=== PATIENT | female | born 1935 | race Caucasian/White ===

== ENCOUNTER 2018-02-24 15:42 | Inpatient (IN) | payer MEDICARE, OTHER ==
[~2018-02-24] VITALS: Ht 162.6 cm; Wt 46.2 kg
[~2018-02-24 15:42] MED LIST: ASPI-1265 PO; ATOR20TA66 PO; CLOP75TA35 PO; FAMO20TA8 PO; GLIP5TAB13 PO; MECL12.584 PO; SITA1TAB6 PO
[2018-02-24] MEDS ORDERED: TETanus/Pertussis (Acell)/Diphther VAC/PF (Tdap-Adult) 0.5ml syringe IMVAC ONE (16:10)
[2018-02-24] MEDS ORDERED: normal saline 1000ml 1,000 ML IV ONE (16:10)
[2018-02-24 17:00] LABS: BASOPHILS # (AUTO) 0.1 X10'3 (0-0.2); BASOPHILS % (AUTO) 0.6 % (0-1); EOSINOPHILS # (AUTO) 0.1 X10'3 (0-0.9); EOSINOPHILS % (AUTO) 0.6 % (0-6); HEMATOCRIT 39.3 % (35.0-45.0); HEMOGLOBIN 13.2 g/dl (12.0-16.0); LYMPHOCYTES # (AUTO) 1.8 X10'3 (1.1-4.8); LYMPHOCYTES % (AUTO) 18.3 % (21-51); MEAN CORPUSCULAR HEMOGLOBIN 29.6 PG (27.0-31.0); MEAN CORPUSCULAR HGB CONC 33.6 % (33.0-36.5); MEAN PLATELET VOLUME 12.3 FL (7.4-10.4); MONOCYTES # (AUTO) 0.7 X10'3 (0-0.9); MONOCYTES % (AUTO) 7.3 % (2-12); NEUTROPHILS # (AUTO) 7.1 X10'3 (1.8-7.7); NEUTROPHILS % (AUTO) 73.2 % (42-75); PLATELET COUNT 239 X10'3 (140-440); RED BLOOD COUNT 4.46 X10'6 (4.20-5.60); RED CELL DISTRIBUTION WIDTH 13.2 % (11.5-14.5); WHITE BLOOD COUNT 9.7 X10'3 (4.5-11.0)
[2018-02-24 17:16] LABS: ALANINE AMINOTRANSFERASE 18 U/L (12-78); ALBUMIN 3.5 G/DL (3.4-5.0); ALBUMIN/GLOBULIN RATIO 0.7 (1.1-1.5); ALKALINE PHOSPHATASE 91 IU/L (46-116); ANION GAP 14 (8-16); ASPARTATE AMINO TRANSFERASE 14 U/L (10-37); BILIRUBIN,TOTAL 0.5 MG/DL (0.1-1.0); BLOOD UREA NITROGEN 36 MG/DL (7-18); BUN/CREATININE RATIO 24.8 (6.6-38.0); CALCIUM 9.8 MG/DL (8.5-10.1); CHLORIDE 90 MMOL/L (99-107); CREATININE 1.45 MG/DL (0.40-0.90); POTASSIUM 5.4 MMOL/L (3.5-5.1); SODIUM 127 MMOL/L (135-145); TOTAL CARBON DIOXIDE 22.7 MMOL/L (24-32); TOTAL PROTEIN 8.6 G/DL (6.4-8.2); eGFR 35 ML/MIN
[2018-02-24 17:21] LABS: GLUCOSE 502 MG/DL (70-104)
[2018-02-24 17:23] LABS: LARGE PLATELETS MODERATE; PLATELET ESTIMATE NORMAL
[2018-02-24] MEDS ORDERED: dextrose 50%-water 50ml dispensing syringe IV PRN ×2 (20:00)
[2018-02-24] MEDS ORDERED: dextrose ORAL solution 15 GM/59 ML bottle PO PRN (20:00)
[2018-02-24] MEDS ORDERED: potassium Cl 20 mEq SR tablet PO PRN ×2 (20:00)
[2018-02-24] MEDS ORDERED: ondansetron/PF 4mg/2ml inj IV PRN (20:00)
[2018-02-24] MEDS ORDERED: MESSAGE TO PHARMACY PO ONE (20:00)
[2018-02-24] MEDS ORDERED: insulin regular, human 10 units/0.1 ml syringe SQ ONE (20:00)
[2018-02-24] MEDS ORDERED: acetaminophen 325mg tablet PO PRN (20:00)
[2018-02-24] MEDS ORDERED: glucagon, human recombinant 1mg kit SUBCUT PRN (20:00)
[2018-02-24] MEDS ORDERED: potassium Cl 40MEQ/NS 500ml 500 ML IV PRN ×2 (20:00)
[2018-02-24] MEDS: normal saline 1000ml 1,000 ML IV SCH (20:36)
[2018-02-24] MEDS: vancomycin/NS 1 GM ADD-VANTAGE 250 ML X 1 DOSE IV SCH (20:36)
[2018-02-24] MEDS: insulin glargine (Lantus) pen - multi-dose SQ SCH (21:00)
[2018-02-24] MEDS: atorvastatin 20mg tablet PO SCH (21:44)
[2018-02-25] MEDS ORDERED: insulin glargine (Lantus) pen - multi-dose SQ ONE (00:53)
[2018-02-25] MEDS: insulin glargine (Lantus) pen - multi-dose SQ SCH ×2 (01:12→21:32)
[2018-02-25] MEDS: piperacillin/tazo 3.375gm/50ml 50 ML IV SCH ×4 (01:53→20:52)
[2018-02-25] MEDS: normal saline 1000ml 1,000 ML IV SCH ×3 (06:01→20:09)
[2018-02-25 06:59] LABS: BASOPHILS % (AUTO) 0 % (0-1); EOSINOPHILS # (AUTO) 0.1 X10'3 (0-0.9); EOSINOPHILS % (AUTO) 0.8 % (0-6); HEMATOCRIT 35.4 % (35.0-45.0); HEMOGLOBIN 12.1 g/dl (12.0-16.0); LYMPHOCYTES # (AUTO) 1.1 X10'3 (1.1-4.8); LYMPHOCYTES % (AUTO) 6.3 % (21-51); MEAN CORPUSCULAR HEMOGLOBIN 29.8 PG (27.0-31.0); MEAN CORPUSCULAR HGB CONC 34.2 % (33.0-36.5); MEAN CORPUSCULAR VOLUME 87.3 FL (78-98); MEAN PLATELET VOLUME 11.8 FL (7.4-10.4); MONOCYTES # (AUTO) 1.2 X10'3 (0-0.9); MONOCYTES % (AUTO) 6.7 % (2-12); NEUTROPHILS # (AUTO) 15.7 X10'3 (1.8-7.7); NEUTROPHILS % (AUTO) 86.2 % (42-75); PLATELET COUNT 213 X10'3 (140-440); RED BLOOD COUNT 4.05 X10'6 (4.20-5.60); RED CELL DISTRIBUTION WIDTH 13.1 % (11.5-14.5); WHITE BLOOD COUNT 18.2 X10'3 (4.5-11.0)
[2018-02-25 07:11] LABS: ALBUMIN 2.7 G/DL (3.4-5.0); ANION GAP 10 (8-16); BLOOD UREA NITROGEN 33 MG/DL (7-18); BUN/CREATININE RATIO 23.1 (6.6-38.0); CALCIUM 8.9 MG/DL (8.5-10.1); CHLORIDE 100 MMOL/L (99-107); CHOL/HDL RATIO 5.3 (0.00-4.99); CHOLESTEROL 170 MG/DL (0-200); CREATININE 1.43 MG/DL (0.40-0.90); GLUCOSE 323 MG/DL (70-104); HDL CHOLESTEROL 32 MG/DL (35-60); LDL CHOLESTEROL 114 MG/DL (50-100); POTASSIUM 4.9 MMOL/L (3.5-5.1); SODIUM 133 MMOL/L (135-145); TOTAL CARBON DIOXIDE 22.8 MMOL/L (24-32); TRIGLYCERIDES 112 MG/DL (20-135); eGFR 35 ML/MIN
[2018-02-25] MEDS: K and/or MAG REPLACEMENT MC SCH (08:00)
[2018-02-25] MEDS: famotidine 20mg tablet PO SCH ×2 (08:00→20:09)
[2018-02-25] MEDS: clopidogrel 75mg tablet PO SCH (08:00)
[2018-02-25 08:09] LABS: TOTAL CELLS COUNTED 100
[2018-02-25 08:10] LABS: PLATELET ESTIMATE NORMAL
[2018-02-25] MEDS: aspirin 81mg tab.chew PO SCH (08:28)
[2018-02-25] MEDS: insulin Lispro (HumaLOG) vial - multi-dose SQ SCH ×3 (09:14→21:34)
[2018-02-25 15:28] VITALS: BP 135/70
[2018-02-25 19:45] VITALS: BP 112/46
[2018-02-25] MEDS: atorvastatin 20mg tablet PO SCH (20:09)
[2018-02-25] MEDS: lactobacillus rhamnosus 10,000 MMU CELLS/CAPSULE PO SCH (20:09)
[2018-02-25] MEDS: vancomycin/NS 1 GM ADD-VANTAGE 250 ML X 1 DOSE IV SCH (21:38)
[2018-02-26] VITALS: BP 114/46
[2018-02-26] MEDS: piperacillin/tazo 3.375gm/50ml 50 ML IV SCH ×4 (02:08→19:19)
[2018-02-26] MEDS: normal saline 1000ml 1,000 ML IV SCH ×2 (03:57→12:31)
[2018-02-26 05:28] LABS: BASOPHILS % (AUTO) 0.3 % (0-1); EOSINOPHILS # (AUTO) 0.2 X10'3 (0-0.9); EOSINOPHILS % (AUTO) 1.6 % (0-6); HEMATOCRIT 32.6 % (35.0-45.0); HEMOGLOBIN 10.8 g/dl (12.0-16.0); LYMPHOCYTES # (AUTO) 1.9 X10'3 (1.1-4.8); LYMPHOCYTES % (AUTO) 17.1 % (21-51); MEAN CORPUSCULAR HEMOGLOBIN 29.5 PG (27.0-31.0); MEAN CORPUSCULAR HGB CONC 33.3 % (33.0-36.5); MEAN CORPUSCULAR VOLUME 88.7 FL (78-98); MEAN PLATELET VOLUME 11.6 FL (7.4-10.4); MONOCYTES # (AUTO) 0.9 X10'3 (0-0.9); MONOCYTES % (AUTO) 8.3 % (2-12); NEUTROPHILS # (AUTO) 8.1 X10'3 (1.8-7.7); NEUTROPHILS % (AUTO) 72.7 % (42-75); PLATELET COUNT 210 X10'3 (140-440); RED BLOOD COUNT 3.67 X10'6 (4.20-5.60); RED CELL DISTRIBUTION WIDTH 13.3 % (11.5-14.5); WHITE BLOOD COUNT 11.2 X10'3 (4.5-11.0)
[2018-02-26 05:51] LABS: ALBUMIN 2.2 G/DL (3.4-5.0); ANION GAP 8 (8-16); BLOOD UREA NITROGEN 32 MG/DL (7-18); BUN/CREATININE RATIO 26.2 (6.6-38.0); CALCIUM 8.5 MG/DL (8.5-10.1); CHLORIDE 106 MMOL/L (99-107); CREATININE 1.22 MG/DL (0.40-0.90); GLUCOSE 111 MG/DL (70-104); POTASSIUM 4.4 MMOL/L (3.5-5.1); SODIUM 139 MMOL/L (135-145); TOTAL CARBON DIOXIDE 24.6 MMOL/L (24-32); eGFR 42 ML/MIN
[2018-02-26 07:00] VITALS: BP 137/63
[2018-02-26] MEDS: K and/or MAG REPLACEMENT MC SCH (07:22)
[2018-02-26 07:40] LABS: LARGE PLATELETS FEW; PLATELET ESTIMATE NORMAL
[2018-02-26] MEDS: aspirin 81mg tab.chew PO SCH (11:17)
[2018-02-26] MEDS: famotidine 20mg tablet PO SCH ×2 (11:17→21:20)
[2018-02-26] MEDS: clopidogrel 75mg tablet PO SCH (11:17)
[2018-02-26] MEDS: lactobacillus rhamnosus 10,000 MMU CELLS/CAPSULE PO SCH ×2 (11:17→21:19)
[2018-02-26 12:30] VITALS: BP 127/63
[2018-02-26 19:00] VITALS: BP 95/51
[2018-02-26] MEDS: insulin Lispro (HumaLOG) vial - multi-dose SQ SCH ×2 (19:18→21:29)
[2018-02-26] MEDS: vancomycin/NS 1 GM ADD-VANTAGE 250 ML X 1 DOSE IV SCH (21:20)
[2018-02-26] MEDS: atorvastatin 20mg tablet PO SCH (21:20)
[2018-02-26] MEDS: insulin glargine (Lantus) pen - multi-dose SQ SCH (21:30)
[2018-02-26] MEDS: HYDROcodone/acetaminophen 5mg/325mg tablet PO PRN (21:43)
[2018-02-27] VITALS: BP 98/68
[2018-02-27] MEDS: normal saline 1000ml 1,000 ML IV SCH ×4 (00:04→19:57)
[2018-02-27] MEDS: piperacillin/tazo 3.375gm/50ml 50 ML IV SCH ×2 (02:01→07:48)
[2018-02-27 06:01] LABS: BASOPHILS % (AUTO) 0.4 % (0-1); EOSINOPHILS # (AUTO) 0.3 X10'3 (0-0.9); EOSINOPHILS % (AUTO) 2.9 % (0-6); HEMATOCRIT 33.9 % (35.0-45.0); HEMOGLOBIN 11.4 g/dl (12.0-16.0); LYMPHOCYTES # (AUTO) 2.7 X10'3 (1.1-4.8); LYMPHOCYTES % (AUTO) 28.8 % (21-51); MEAN CORPUSCULAR HEMOGLOBIN 29.9 PG (27.0-31.0); MEAN CORPUSCULAR HGB CONC 33.6 % (33.0-36.5); MEAN CORPUSCULAR VOLUME 89.1 FL (78-98); MEAN PLATELET VOLUME 11.1 FL (7.4-10.4); MONOCYTES # (AUTO) 0.7 X10'3 (0-0.9); MONOCYTES % (AUTO) 7.7 % (2-12); NEUTROPHILS # (AUTO) 5.7 X10'3 (1.8-7.7); NEUTROPHILS % (AUTO) 60.2 % (42-75); PLATELET COUNT 225 X10'3 (140-440); RED BLOOD COUNT 3.81 X10'6 (4.20-5.60); RED CELL DISTRIBUTION WIDTH 13.4 % (11.5-14.5); WHITE BLOOD COUNT 9.4 X10'3 (4.5-11.0)
[2018-02-27 06:19] LABS: ALBUMIN 2.4 G/DL (3.4-5.0); ANION GAP 11 (8-16); BLOOD UREA NITROGEN 26 MG/DL (7-18); BUN/CREATININE RATIO 19.4 (6.6-38.0); CALCIUM 8.4 MG/DL (8.5-10.1); CHLORIDE 106 MMOL/L (99-107); CREATININE 1.34 MG/DL (0.40-0.90); GLUCOSE 119 MG/DL (70-104); POTASSIUM 3.9 MMOL/L (3.5-5.1); SODIUM 140 MMOL/L (135-145); TOTAL CARBON DIOXIDE 23.3 MMOL/L (24-32); eGFR 38 ML/MIN
[2018-02-27 07:00] VITALS: BP 109/51
[2018-02-27 07:05] LABS: LARGE PLATELETS FEW; PLATELET ESTIMATE NORMAL
[2018-02-27] MEDS: aspirin 81mg tab.chew PO SCH (07:45)
[2018-02-27] MEDS: clopidogrel 75mg tablet PO SCH (07:45)
[2018-02-27] MEDS: lactobacillus rhamnosus 10,000 MMU CELLS/CAPSULE PO SCH ×2 (07:45→19:22)
[2018-02-27] MEDS: famotidine 20mg tablet PO SCH ×2 (07:45→19:22)
[2018-02-27] MEDS: K and/or MAG REPLACEMENT MC SCH (07:48)
[2018-02-27] MEDS: insulin Lispro (HumaLOG) vial - multi-dose SQ SCH ×4 (09:15→21:35)
[2018-02-27 11:00] VITALS: BP 157/52
[2018-02-27] MEDS: piperacillin-tazo 2.25gm/50ml 50 ML IV SCH ×2 (14:00→19:28)
[2018-02-27 19:00] VITALS: BP 146/86
[2018-02-27] MEDS ORDERED: VANCOMYCIN LEVEL IV NR (20:30)
[2018-02-27] MEDS: atorvastatin 20mg tablet PO SCH (21:30)
[2018-02-27] MEDS: insulin glargine (Lantus) pen - multi-dose SQ SCH (21:36)
[2018-02-27] MEDS: HYDROcodone/acetaminophen 5mg/325mg tablet PO PRN (23:20)
[2018-02-27 23:50] VITALS: BP 138/65
[2018-02-28] MEDS: normal saline 1000ml 1,000 ML IV SCH ×4 (00:27→22:27)
[2018-02-28] MEDS: piperacillin-tazo 2.25gm/50ml 50 ML IV SCH ×4 (02:09→19:40)
[2018-02-28 05:04] LABS: BASOPHILS # (AUTO) 0.1 X10'3 (0-0.2); BASOPHILS % (AUTO) 0.6 % (0-1); EOSINOPHILS # (AUTO) 0.2 X10'3 (0-0.9); EOSINOPHILS % (AUTO) 2.9 % (0-6); HEMATOCRIT 29.7 % (35.0-45.0); HEMOGLOBIN 10.1 g/dl (12.0-16.0); LYMPHOCYTES # (AUTO) 2.2 X10'3 (1.1-4.8); LYMPHOCYTES % (AUTO) 26.9 % (21-51); MEAN CORPUSCULAR HEMOGLOBIN 29.8 PG (27.0-31.0); MEAN CORPUSCULAR HGB CONC 34.1 % (33.0-36.5); MEAN CORPUSCULAR VOLUME 87.3 FL (78-98); MEAN PLATELET VOLUME 11.2 FL (7.4-10.4); MONOCYTES # (AUTO) 0.7 X10'3 (0-0.9); MONOCYTES % (AUTO) 8.4 % (2-12); NEUTROPHILS # (AUTO) 5.1 X10'3 (1.8-7.7); NEUTROPHILS % (AUTO) 61.2 % (42-75); PLATELET COUNT 202 X10'3 (140-440); RED CELL DISTRIBUTION WIDTH 13.5 % (11.5-14.5); WHITE BLOOD COUNT 8.4 X10'3 (4.5-11.0)
[2018-02-28 05:29] LABS: ALBUMIN 2.1 G/DL (3.4-5.0); ANION GAP 7 (8-16); BLOOD UREA NITROGEN 22 MG/DL (7-18); CALCIUM 8.5 MG/DL (8.5-10.1); CHLORIDE 110 MMOL/L (99-107); CREATININE 1.22 MG/DL (0.40-0.90); GLUCOSE 86 MG/DL (70-104); POTASSIUM 4.7 MMOL/L (3.5-5.1); SODIUM 142 MMOL/L (135-145); TOTAL CARBON DIOXIDE 24.9 MMOL/L (24-32); eGFR 42 ML/MIN
[2018-02-28 07:53] LABS: LARGE PLATELETS FEW; PLATELET ESTIMATE NORMAL
[2018-02-28] MEDS: K and/or MAG REPLACEMENT MC SCH (08:00)
[2018-02-28 08:04] VITALS: BP 156/68
[2018-02-28] MEDS: clopidogrel 75mg tablet PO SCH (10:48)
[2018-02-28] MEDS: aspirin 81mg tab.chew PO SCH (10:49)
[2018-02-28] MEDS: famotidine 20mg tablet PO SCH ×2 (10:49→19:40)
[2018-02-28] MEDS: lactobacillus rhamnosus 10,000 MMU CELLS/CAPSULE PO SCH ×2 (10:49→19:40)
[2018-02-28 11:00] VITALS: BP 164/71
[2018-02-28 18:00] VITALS: BP 163/76
[2018-02-28] MEDS: insulin Lispro (HumaLOG) vial - multi-dose SQ SCH (19:04)
[2018-02-28] MEDS: atorvastatin 20mg tablet PO SCH (19:41)
[2018-02-28] MEDS: insulin glargine (Lantus) pen - multi-dose SQ SCH (21:09)
[2018-02-28] MEDS: HYDROcodone/acetaminophen 5mg/325mg tablet PO PRN (21:12)
[2018-02-28 22:33] LABS: CLARITY,URINE CLEAR (Clear); COLOR,URINE STRAW (Yellow); GLUCOSE, URINE >=1000 mg/dl (Neg); KETONES,URINE NEGATIVE (Neg); LEUKOCYTE ESTERASE ,URINE NEGATIVE (Neg); NITRITES, URINE NEGATIVE (Neg); OCCULT BLOOD,URINE TRACE-INTACT (Neg); PROTEIN,URINE TRACE mg/dl (Neg); UROBILINOGEN,URINE 0.2 E.U/dL (0.2-1.0)
[2018-02-28 22:35] LABS: UA COLLECTION TYPE CLN CATCH MIDSTREAM
[2018-02-28 23:15] LABS: BACTERIA,URINE NONE SEEN /HPF (Neg); MUCUS STRANDS NONE SEEN /LPF (Neg); RBC,URINE 0-2 /HPF (0-2); SQUAMOUS EPITHELIAL CELL,UR FEW /LPF (FEW); WBC,URINE 0-4 /HPF (0-4)
[2018-03-01] VITALS: BP 141/63
[2018-03-01] MEDS: piperacillin-tazo 2.25gm/50ml 50 ML IV SCH ×4 (01:44→20:54)
[2018-03-01 05:30] LABS: BASOPHILS % (AUTO) 0.3 % (0-1); EOSINOPHILS # (AUTO) 0.2 X10'3 (0-0.9); EOSINOPHILS % (AUTO) 2.8 % (0-6); HEMOGLOBIN 9.8 g/dl (12.0-16.0); LYMPHOCYTES # (AUTO) 2.1 X10'3 (1.1-4.8); LYMPHOCYTES % (AUTO) 26.2 % (21-51); MEAN CORPUSCULAR HEMOGLOBIN 29.9 PG (27.0-31.0); MEAN CORPUSCULAR HGB CONC 33.6 % (33.0-36.5); MEAN CORPUSCULAR VOLUME 88.9 FL (78-98); MEAN PLATELET VOLUME 10.8 FL (7.4-10.4); MONOCYTES # (AUTO) 0.7 X10'3 (0-0.9); MONOCYTES % (AUTO) 9.2 % (2-12); NEUTROPHILS # (AUTO) 4.9 X10'3 (1.8-7.7); NEUTROPHILS % (AUTO) 61.5 % (42-75); PLATELET COUNT 219 X10'3 (140-440); RED BLOOD COUNT 3.26 X10'6 (4.20-5.60); RED CELL DISTRIBUTION WIDTH 13.3 % (11.5-14.5); WHITE BLOOD COUNT 7.9 X10'3 (4.5-11.0)
[2018-03-01 05:59] LABS: ALBUMIN 2.2 G/DL (3.4-5.0); ANION GAP 10 (8-16); BLOOD UREA NITROGEN 19 MG/DL (7-18); BUN/CREATININE RATIO 17.4 (6.6-38.0); CALCIUM 8.5 MG/DL (8.5-10.1); CHLORIDE 109 MMOL/L (99-107); CREATININE 1.09 MG/DL (0.40-0.90); GLUCOSE 60 MG/DL (70-104); POTASSIUM 3.8 MMOL/L (3.5-5.1); SODIUM 143 MMOL/L (135-145); TOTAL CARBON DIOXIDE 24.3 MMOL/L (24-32); eGFR 48 ML/MIN
[2018-03-01 07:00] VITALS: BP 152/69
[2018-03-01] MEDS: normal saline 1000ml 1,000 ML IV SCH ×2 (07:43→20:54)
[2018-03-01] MEDS: aspirin 81mg tab.chew PO SCH (07:44)
[2018-03-01] MEDS: clopidogrel 75mg tablet PO SCH (07:44)
[2018-03-01] MEDS: lactobacillus rhamnosus 10,000 MMU CELLS/CAPSULE PO SCH ×2 (07:44→20:54)
[2018-03-01] MEDS: famotidine 20mg tablet PO SCH ×2 (07:44→20:54)
[2018-03-01] MEDS: K and/or MAG REPLACEMENT MC SCH (08:00)
[2018-03-01 11:11] VITALS: BP 147/70
[2018-03-01] MEDS: insulin Lispro (HumaLOG) vial - multi-dose SQ SCH ×2 (14:34→19:04)
[2018-03-01 19:00] VITALS: BP 156/84
[2018-03-01] MEDS: atorvastatin 20mg tablet PO SCH (20:54)
[2018-03-01] MEDS: insulin glargine (Lantus) pen - multi-dose SQ SCH (21:05)
[2018-03-02] VITALS: BP 150/71
[2018-03-02] MEDS: piperacillin-tazo 2.25gm/50ml 50 ML IV SCH ×4 (02:04→20:11)
[2018-03-02] MEDS: normal saline 1000ml 1,000 ML IV SCH ×3 (03:57→19:38)
[2018-03-02 07:00] VITALS: BP 145/71
[2018-03-02] MEDS: dextrose ORAL solution 15 GM/59 ML bottle PO PRN (07:40)
[2018-03-02] MEDS: K and/or MAG REPLACEMENT MC SCH (08:00)
[2018-03-02] MEDS: aspirin 81mg tab.chew PO SCH (10:29)
[2018-03-02] MEDS: lactobacillus rhamnosus 10,000 MMU CELLS/CAPSULE PO SCH ×2 (10:29→20:14)
[2018-03-02] MEDS: famotidine 20mg tablet PO SCH ×2 (10:30→20:14)
[2018-03-02 11:00] VITALS: BP 152/74
[2018-03-02] MEDS: insulin Lispro (HumaLOG) vial - multi-dose SQ SCH ×2 (14:25→19:08)
[2018-03-02] MEDS: clopidogrel 75mg tablet PO SCH (14:25)
[2018-03-02 20:00] VITALS: BP 182/85
[2018-03-02] MEDS: atorvastatin 20mg tablet PO SCH (20:14)
[2018-03-02 21:00] VITALS: BP 168/79
[2018-03-02] MEDS: insulin glargine (Lantus) pen - multi-dose SQ SCH (22:03)
[2018-03-03] VITALS (15 sets, daily range): BP systolic 135–180; BP diastolic 60–80
[2018-03-03] MEDS: piperacillin-tazo 2.25gm/50ml 50 ML IV SCH ×4 (02:52→20:29)
[2018-03-03] MEDS: normal saline 1000ml 1,000 ML IV SCH ×3 (04:54→22:25)
[2018-03-03 06:13] LABS: ALBUMIN 2.1 G/DL (3.4-5.0); ANION GAP 11 (8-16); BLOOD UREA NITROGEN 18 MG/DL (7-18); CALCIUM 8.3 MG/DL (8.5-10.1); CHLORIDE 108 MMOL/L (99-107); GLUCOSE 167 MG/DL (70-104); POTASSIUM 4.1 MMOL/L (3.5-5.1); SODIUM 141 MMOL/L (135-145); eGFR 43 ML/MIN
[2018-03-03] MEDS: K and/or MAG REPLACEMENT MC SCH (07:44)
[2018-03-03] MEDS: clopidogrel 75mg tablet PO SCH (07:45)
[2018-03-03] MEDS: aspirin 81mg tab.chew PO SCH (07:45)
[2018-03-03] MEDS: lactobacillus rhamnosus 10,000 MMU CELLS/CAPSULE PO SCH ×2 (07:59→20:29)
[2018-03-03] MEDS: famotidine 20mg tablet PO SCH ×2 (07:59→20:29)
[2018-03-03] MEDS: insulin Lispro (HumaLOG) vial - multi-dose SQ SCH ×2 (14:29→22:25)
[2018-03-03] MEDS ORDERED: midazolam 2 mg/2 ml injection ONE (14:36)
[2018-03-03] MEDS ORDERED: heparin 1,000unit/ml 10ml vial 10 ML ONE (14:37)
[2018-03-03] MEDS ORDERED: fentaNYL/PF 50MCG/1 ML 2ML syringe ONE (14:37)
[2018-03-03] MEDS ORDERED: LIDOcaine 1%/PF (10mg/ml) 5ml vial ONE ×2 (14:37→14:55)
[2018-03-03] MEDS ORDERED: iohexol 350MG/ML 100ml bottle IV ONE (14:37)
[2018-03-03] MEDS ORDERED: clopidogrel 300mg tablet ONE (16:04)
[2018-03-03] MEDS ORDERED: proCHLORperazine 10 MG/2 ml inj IV PRN (17:05)
[2018-03-03] MEDS ORDERED: HYDROcodone/acetaminophen 10/325mg tab PO PRN (17:05)
[2018-03-03] MEDS ORDERED: ondansetron/PF 4mg/2ml inj IV PRN (17:05)
[2018-03-03] MEDS ORDERED: HYDROcodone/acetaminophen 5mg/325mg tablet PO PRN (17:05)
[2018-03-03] MEDS ORDERED: OXAZEpam 15mg capsule PO PRN (17:05)
[2018-03-03] MEDS ORDERED: normal saline 1000ml 1,000 ML IV SCH (17:05)
[2018-03-03] MEDS ORDERED: acetaminophen 325mg tablet PO PRN (17:05)
[2018-03-03] MEDS: atorvastatin 20mg tablet PO SCH (20:29)
[2018-03-03] MEDS: insulin glargine (Lantus) pen - multi-dose SQ SCH (22:38)
[2018-03-04] MEDS ORDERED: piperacillin-tazo 2.25gm/50ml 50 ML IV ONE (01:56)
[2018-03-04] MEDS: piperacillin-tazo 2.25gm/50ml 50 ML IV SCH ×3 (02:06→13:54)
[2018-03-04 03:00] VITALS: BP 139/60
[2018-03-04 05:22] LABS: BASOPHILS % (AUTO) 0.4 % (0-1); EOSINOPHILS # (AUTO) 0.2 X10'3 (0-0.9); EOSINOPHILS % (AUTO) 2.9 % (0-6); HEMOGLOBIN 9.7 g/dl (12.0-16.0); LYMPHOCYTES # (AUTO) 1.5 X10'3 (1.1-4.8); LYMPHOCYTES % (AUTO) 19.3 % (21-51); MEAN CORPUSCULAR HEMOGLOBIN 29.6 PG (27.0-31.0); MEAN CORPUSCULAR HGB CONC 33.5 % (33.0-36.5); MEAN CORPUSCULAR VOLUME 88.2 FL (78-98); MONOCYTES # (AUTO) 0.7 X10'3 (0-0.9); MONOCYTES % (AUTO) 9.1 % (2-12); NEUTROPHILS # (AUTO) 5.6 X10'3 (1.8-7.7); NEUTROPHILS % (AUTO) 68.3 % (42-75); PLATELET COUNT 260 X10'3 (140-440); RED BLOOD COUNT 3.29 X10'6 (4.20-5.60); RED CELL DISTRIBUTION WIDTH 12.6 % (11.5-14.5)
[2018-03-04 06:00] VITALS: BP 143/61
[2018-03-04 06:25] LABS: ALBUMIN 2.1 G/DL (3.4-5.0); ANION GAP 8 (8-16); BLOOD UREA NITROGEN 21 MG/DL (7-18); BUN/CREATININE RATIO 17.4 (6.6-38.0); CALCIUM 8.2 MG/DL (8.5-10.1); CHLORIDE 106 MMOL/L (99-107); CREATININE 1.21 MG/DL (0.40-0.90); GLUCOSE 264 MG/DL (70-104); POTASSIUM 4.1 MMOL/L (3.5-5.1); SODIUM 138 MMOL/L (135-145); TOTAL CARBON DIOXIDE 23.6 MMOL/L (24-32); eGFR 43 ML/MIN
[2018-03-04] MEDS: lactobacillus rhamnosus 10,000 MMU CELLS/CAPSULE PO SCH ×2 (07:09→20:47)
[2018-03-04] MEDS: clopidogrel 75mg tablet PO SCH (07:09)
[2018-03-04] MEDS: famotidine 20mg tablet PO SCH ×2 (07:09→20:47)
[2018-03-04] MEDS: K and/or MAG REPLACEMENT MC SCH (08:00)
[2018-03-04] MEDS: aspirin 81mg tab.chew PO SCH (08:27)
[2018-03-04] MEDS: insulin Lispro (HumaLOG) vial - multi-dose SQ SCH ×3 (08:28→19:16)
[2018-03-04] MEDS: CefTRIAXone 2gm/D5W 50ml 50 ML IV SCH (17:05)
[2018-03-04 19:00] VITALS: BP 170/75
[2018-03-04] MEDS: atorvastatin 20mg tablet PO SCH (20:47)
[2018-03-04] MEDS: insulin glargine (Lantus) pen - multi-dose SQ SCH (20:53)
[2018-03-04 23:00] VITALS: BP 154/70
[2018-03-05 03:00] VITALS: BP 145/49
[2018-03-05 05:30] VITALS: BP 162/77
[2018-03-05 05:31] LABS: BASOPHILS % (AUTO) 0.4 % (0-1); EOSINOPHILS # (AUTO) 0.2 X10'3 (0-0.9); EOSINOPHILS % (AUTO) 2.1 % (0-6); HEMATOCRIT 29.5 % (35.0-45.0); LYMPHOCYTES # (AUTO) 1.8 X10'3 (1.1-4.8); LYMPHOCYTES % (AUTO) 19.3 % (21-51); MEAN CORPUSCULAR VOLUME 88.3 FL (78-98); MEAN PLATELET VOLUME 11.1 FL (7.4-10.4); MONOCYTES # (AUTO) 0.9 X10'3 (0-0.9); MONOCYTES % (AUTO) 9.5 % (2-12); NEUTROPHILS # (AUTO) 6.5 X10'3 (1.8-7.7); NEUTROPHILS % (AUTO) 68.7 % (42-75); PLATELET COUNT 285 X10'3 (140-440); RED BLOOD COUNT 3.34 X10'6 (4.20-5.60); RED CELL DISTRIBUTION WIDTH 13.4 % (11.5-14.5); WHITE BLOOD COUNT 9.5 X10'3 (4.5-11.0)
[2018-03-05 06:45] LABS: ALBUMIN 2.2 G/DL (3.4-5.0); ANION GAP 9 (8-16); BLOOD UREA NITROGEN 23 MG/DL (7-18); BUN/CREATININE RATIO 20.7 (6.6-38.0); CALCIUM 8.7 MG/DL (8.5-10.1); CHLORIDE 108 MMOL/L (99-107); CREATININE 1.11 MG/DL (0.40-0.90); GLUCOSE 85 MG/DL (70-104); POTASSIUM 4.2 MMOL/L (3.5-5.1); SODIUM 143 MMOL/L (135-145); TOTAL CARBON DIOXIDE 26.5 MMOL/L (24-32); eGFR 47 ML/MIN
[2018-03-05] MEDS: K and/or MAG REPLACEMENT MC SCH (08:00)
[2018-03-05] MEDS: clopidogrel 75mg tablet PO SCH (08:40)
[2018-03-05] MEDS: CefTRIAXone 2gm/D5W 50ml 50 ML IV SCH (08:40)
[2018-03-05] MEDS: famotidine 20mg tablet PO SCH ×2 (08:40→19:57)
[2018-03-05] MEDS: lactobacillus rhamnosus 10,000 MMU CELLS/CAPSULE PO SCH ×2 (08:40→19:57)
[2018-03-05] MEDS: aspirin 81mg tab.chew PO SCH (08:40)
[2018-03-05] MEDS: insulin Lispro (HumaLOG) vial - multi-dose SQ SCH ×3 (10:14→20:00)
[2018-03-05 10:49] LABS: LARGE PLATELETS FEW; PLATELET ESTIMATE NORMAL
[2018-03-05 11:00] VITALS: BP 139/63
[2018-03-05] MEDS: dextrose ORAL solution 15 GM/59 ML bottle PO PRN (17:29)
[2018-03-05 19:00] VITALS: BP 181/86
[2018-03-05] MEDS: atorvastatin 20mg tablet PO SCH (19:58)
[2018-03-05] MEDS: insulin glargine (Lantus) pen - multi-dose SQ SCH (22:42)
[2018-03-05 23:00] VITALS: BP 156/74
[2018-03-06 03:00] VITALS: BP 138/69
[2018-03-06 06:00] VITALS: BP 148/71
[2018-03-06 06:48] LABS: ALBUMIN 2.2 G/DL (3.4-5.0); ANION GAP 9 (8-16); BLOOD UREA NITROGEN 19 MG/DL (7-18); BUN/CREATININE RATIO 17.3 (6.6-38.0); CALCIUM 8.3 MG/DL (8.5-10.1); CHLORIDE 107 MMOL/L (99-107); GLUCOSE 89 MG/DL (70-104); POTASSIUM 4.3 MMOL/L (3.5-5.1); SODIUM 141 MMOL/L (135-145); TOTAL CARBON DIOXIDE 24.7 MMOL/L (24-32); eGFR 48 ML/MIN
[2018-03-06 06:49] LABS: BASOPHILS % (AUTO) 0.3 % (0-1); EOSINOPHILS # (AUTO) 0.3 X10'3 (0-0.9); EOSINOPHILS % (AUTO) 4.2 % (0-6); HEMATOCRIT 28.8 % (35.0-45.0); HEMOGLOBIN 9.9 g/dl (12.0-16.0); LYMPHOCYTES # (AUTO) 1.8 X10'3 (1.1-4.8); LYMPHOCYTES % (AUTO) 21.8 % (21-51); MEAN CORPUSCULAR HEMOGLOBIN 29.7 PG (27.0-31.0); MEAN CORPUSCULAR HGB CONC 34.2 % (33.0-36.5); MEAN CORPUSCULAR VOLUME 86.9 FL (78-98); MEAN PLATELET VOLUME 10.3 FL (7.4-10.4); MONOCYTES # (AUTO) 0.7 X10'3 (0-0.9); MONOCYTES % (AUTO) 8.3 % (2-12); NEUTROPHILS # (AUTO) 5.4 X10'3 (1.8-7.7); NEUTROPHILS % (AUTO) 65.4 % (42-75); PLATELET COUNT 284 X10'3 (140-440); RED BLOOD COUNT 3.31 X10'6 (4.20-5.60); RED CELL DISTRIBUTION WIDTH 13.4 % (11.5-14.5); WHITE BLOOD COUNT 8.2 X10'3 (4.5-11.0)
[2018-03-06] MEDS: K and/or MAG REPLACEMENT MC SCH (08:00)
[2018-03-06] MEDS: aspirin 81mg tab.chew PO SCH (08:36)
[2018-03-06] MEDS: clopidogrel 75mg tablet PO SCH (08:36)
[2018-03-06] MEDS: HYDROcodone/acetaminophen 5mg/325mg tablet PO PRN (08:37)
[2018-03-06] MEDS: lactobacillus rhamnosus 10,000 MMU CELLS/CAPSULE PO SCH (08:37)
[2018-03-06] MEDS: famotidine 20mg tablet PO SCH (08:37)
[2018-03-06] MEDS: CefTRIAXone 2gm/D5W 50ml 50 ML IV SCH (08:39)
[2018-03-06] MEDS: insulin Lispro (HumaLOG) vial - multi-dose SQ SCH ×2 (09:26→13:41)
[2018-03-06 11:00] VITALS: BP 117/55
== END 2018-03-06 15:59 | DRG 853 ==
LOC: ER 15:43 → ED HOLD 19:57 → EDBEDREQ 02-25 14:02 → SUR 3N 02-25 15:27 → PCU 3S 03-03 17:02
PROVIDERS: ADMIT Family Medicine; ATTEND Family Medicine
PROC: 047U3DZ Dilation of Left Peroneal Artery with Intraluminal Device, Percutaneous Approach (ICD-10-PCS; principal; 2018-03-03)
PROC: 047N3DZ Dilation of Left Popliteal Artery with Intraluminal Device, Percutaneous Approach (ICD-10-PCS; 2018-03-03)
PROC: 047S3ZZ Dilation of Left Posterior Tibial Artery, Percutaneous Approach (ICD-10-PCS; 2018-03-03)
PROC: B41G1ZZ Fluoroscopy of Left Lower Extremity Arteries using Low Osmolar Contrast (ICD-10-PCS; 2018-03-03)
DX: A41.01 Sepsis due to Methicillin susceptible Staphylococcus aureus (principal); E11.00 Type 2 diabetes mellitus with hyperosmolarity without nonketotic hyperglycemic-hyperosmolar coma (NKHHC); E44.0 Moderate protein-calorie malnutrition; E11.22 Type 2 diabetes mellitus with diabetic chronic kidney disease; E11.52 Type 2 diabetes mellitus with diabetic peripheral angiopathy with gangrene; E87.1 Hypo-osmolality and hyponatremia; Z68.1 Body mass index [BMI] 19.9 or less, adult; E87.5 Hyperkalemia; N18.3 Chronic kidney disease, stage 3 (moderate); L03.032 Cellulitis of left toe; E78.5 Hyperlipidemia, unspecified; F03.90 Unspecified dementia, unspecified severity, without behavioral disturbance, psychotic disturbance, mood disturbance, and anxiety; I12.9 Hypertensive chronic kidney disease with stage 1 through stage 4 chronic kidney disease, or unspecified chronic kidney disease; M77.32 Calcaneal spur, left foot; Z91.14 Patient's other noncompliance with medication regimen; Z79.899 Other long term (current) drug therapy; Z79.82 Long term (current) use of aspirin; Z79.84 Long term (current) use of oral hypoglycemic drugs; Z86.73 Personal history of transient ischemic attack (TIA), and cerebral infarction without residual deficits; Z82.3 Family history of stroke; Z83.3 Family history of diabetes mellitus
CPT/HCPCS: 36415; 37226; 37228; 37230; 71045; 73630; 73718; 80048; 80053; 80061; 80202; 81001; 82948; 83036; 83605; 85025; 85651; 87040; 87070; 87077; 87186; 90471; 90715; 93922; 96365; 97116; 97161; 97530; 99152; 99153; 99285; A4620; A6212; A6257; A6449; C1725; C1769; C1876; C1894; J0696; J1644; J1815; J2001; J2250; J2543; J3010; J3370; J7030; Q9967